=== PATIENT | male | born 1985 | race Two or more races ===

== ENCOUNTER → 2022-04-29 | Outpatient (REF) ==
[2022-04-30 07:12] LABS: HERPES ZOSTER, VARICELLA IgG 623 index (Immune >165); RUBEOLA IgG ANTIBODY >300.0 AU/mL (Immune >16.4)
== END ==
LOC: M LAB 10:18
PROVIDERS: ATTEND Nurse Practitioner Adult Health
DX: Z02.89 Encounter for other administrative examinations (principal)

== ENCOUNTER → 2022-05-08 | Outpatient (REF) | LOC: M EMP 09:21 | PROVIDERS: ATTEND Family Medicine | DX: Z02.89 Encounter for other administrative examinations (principal) ==

== ENCOUNTER → 2022-05-08 | Outpatient (REF) | LOC: M LAB 13:57 | PROVIDERS: ATTEND Nurse Practitioner Adult Health | DX: Z78.9 Other specified health status (principal) ==

== ENCOUNTER → 2022-08-11 | Outpatient (CLI) | payer MEDICAID, OTHER | LOC: M PLALAB 14:11 | PROVIDERS: ATTEND Advanced Practice Midwife | DX: Z31.440 Encounter of male for testing for genetic disease carrier status for procreative management (principal) ==

== ENCOUNTER → 2022-08-19 | Outpatient (CLI) | payer MEDICAID, OTHER | LOC: M PLALAB 12:38 | PROVIDERS: ATTEND Obstetrics & Gynecology | DX: Z31.440 Encounter of male for testing for genetic disease carrier status for procreative management (principal) ==